=== PATIENT | female | born 1990 | race Asian ===

== ENCOUNTER 2019-06-15 13:53 | Inpatient (IN) | payer MEDICAID ==
[~2019-06-15] VITALS: Ht 154.9 cm; Wt 53.8 kg
[~2019-06-15 13:53] MED LIST: NOCURR
[2019-06-15] MEDS ORDERED: MIRT15 PO (16:32)
[2019-06-15] MEDS ORDERED: FLUO-191 PO (16:32)
[2019-06-15] MEDS ORDERED: ZOLPIDEM TARTRATE 10 MG TABLET PO PRN (16:45)
[2019-06-15] MEDS ORDERED: HALOPERIDOL 5 MG TABLET PO PRN (16:45)
[2019-06-15] MEDS ORDERED: INFLUENZA VIRUS VACCINE QVS 2019-20 (3YR+)/PF 60 MCG/0.5 ML SYRINGE IM ONE (17:30)
[2019-06-15 18:09] VITALS: BP 127/92
[2019-06-15] MEDS: LORazepam 2 MG TABLET PO PRN (20:21)
[2019-06-16 06:07] VITALS: BP 100/60
[2019-06-16 08:19] LABS: BASOPHILS % (AUTO) 0.7 % (0.0-2.0); EOSINOPHILS % (AUTO) 9.5 % (1.0-6.0); HEMATOCRIT 34.9 % (36-46); HEMOGLOBIN 12.1 g/dL (12.0-16.0); LYMPHOCYTES % (AUTO) 31.7 % (22.0-44.0); MEAN CORPUSCULAR HEMOGLOBIN 31.4 pg (26.0-34.0); MEAN CORPUSCULAR HGB CONC 34.7 G/dL (31.0-37.0); MEAN CORPUSCULAR VOLUME 91 fL (80-100); MONOCYTES # (AUTO) 0.5 K/uL (0.1-1.0); MONOCYTES % (AUTO) 7.6 % (2.0-9.0); NEUTROPHILS # (AUTO) 3.2 K/uL (1.8-7.7); NEUTROPHILS % (AUTO) 50.5 % (40.0-70.0); PLATELET COUNT (AUTO) 254 K/uL (150-450); RED BLOOD CELL COUNT(AUTO) 3.85 MIL/uL (4.00-5.20); RED CELL DISTRIBUTION WIDTH 12.6 % (11.5-14.5)
[2019-06-16 08:47] LABS: HEMOGLOBIN A1C 4.9 % (4.5-6.2)
[2019-06-16 08:55] LABS: ALANINE AMINOTRANSFERASE 20 U/L (12-78); ALKALINE PHOSPHATASE 25 U/L (46-116); ANION GAP 6 mmol/L (8-16); ASPARTATE AMINOTRANSFERASE 16 U/L (15-37); BILIRUBIN,TOTAL 0.7 mg/dL (0.1-1.0); CALCIUM, TOTAL 7.8 mg/dL (8.8-10.5); CARBON DIOXIDE 28 mmol/L (22-29); CHLORIDE 107 mmol/L (98-107); CHOL/HDL RATIO 3.1 (3.9-5.7); CHOLESTEROL 120 mg/dL (131-200); CREATININE 0.74 mg/dL (0.60-1.30); FREE T4 (FREE THYROXINE) 1.08 ng/dL (0.76-1.46); GLOMERULAR FILTR. RATE CALC > 60 mL/min (>60); GLUCOSE,RANDOM 81 mg/dL (70-110); HCG,QUANTITATIVE < 1 mIU/mL (0-6); HDL CHOLESTEROL 39 mg/dL (40-60); LDL CHOL (CALC.) 73 mg/dL (0-130); POTASSIUM 3.5 mmol/L (3.5-5.1); SODIUM SERUM 141 mmol/L (136-145); THYROID STIMULATING HORMONE 0.42 uIU/mL (0.36-3.74); TRIGLYCERIDES 42 mg/dL (15-150)
[2019-06-16 09:01] LABS: UREA NITROGEN, BLOOD 12 mg/dL (7-18)
[2019-06-16 09:29] VITALS: BP 101/53
[2019-06-16] MEDS ORDERED: DOCUSATE SODIUM 100 MG CAPSULE PO PRN (11:00)
[2019-06-16] MEDS ORDERED: CloNIDine HCL 0.1 MG TABLET PO PRN (11:00)
[2019-06-16] MEDS ORDERED: ALBUTEROL SULFATE HFA 90 MCG/PUFF 8 GM INHALER IH PRN (11:00)
[2019-06-16] MEDS ORDERED: ACETAMINOPHEN 325 MG TABLET PO PRN (11:00)
[2019-06-16] MEDS ORDERED: ONDANSETRON HCL 4 MG TABLET PO PRN (11:00)
[2019-06-16] MEDS ORDERED: PETROLATUM,WHITE 28 GM JELLY TP PRN (11:00)
[2019-06-16] MEDS ORDERED: IBUPROFEN 400 MG TABLET PO PRN (11:00)
[2019-06-16] MEDS ORDERED: MAG HYDROX/AL HYDROX/SIMETH ES 30 ML SUSPENSION UDCUP PO PRN (11:00)
[2019-06-16] MEDS ORDERED: MAGNESIUM HYDROXIDE SUSPENSION 30 ML UDCUP PO PRN (11:00)
[2019-06-16] MEDS ORDERED: GuaiFENesin/D-METHORPHAN [SUGAR-FREE] 200-20MG/10 ML SYRUP UDCUP PO PRN (11:00)
[2019-06-16] MEDS ORDERED: LOPERAMIDE HCL 2 MG CAPSULE PO PRN (11:00)
[2019-06-16] MEDS: ARIPiprazole 5 MG TABLET PO SCH (11:04)
[2019-06-16] MEDS: FLUoxetine HCL 20 MG CAPSULE PO SCH (11:04)
[2019-06-16 16:04] VITALS: BP 116/71
[2019-06-16] MEDS: LORazepam 2 MG TABLET PO PRN (20:19)
[2019-06-17 05:01] VITALS: BP 110/65
[2019-06-17] MEDS: FLUoxetine HCL 20 MG CAPSULE PO SCH (08:08)
[2019-06-17] MEDS: ARIPiprazole 5 MG TABLET PO SCH (08:08)
[2019-06-17 08:18] VITALS: BP 101/57
[2019-06-17] MEDS ORDERED: FLUoxetine HCL 20 MG CAPSULE PO SCH (09:00)
[2019-06-17] MEDS: NICOTINE 14 MG/24 HOUR PATCH TD PRN (11:54)
[2019-06-17 16:03] VITALS: BP 108/61
[2019-06-17] MEDS: LORazepam 2 MG TABLET PO PRN (20:18)
[2019-06-18 05:17] VITALS: BP 105/61
[2019-06-18] MEDS: ARIPiprazole 5 MG TABLET PO SCH (08:03)
[2019-06-18] MEDS: FLUoxetine HCL 20 MG CAPSULE PO SCH (08:03)
[2019-06-18 08:09] VITALS: BP 115/67
[2019-06-18 08:30] LABS: APPEARANCE,URINE CLEAR (CLEAR); BILIRUBIN,URINE NEGATIVE (NEGATIVE); GLUCOSE, URINE (UA) NEGATIVE (NEGATIVE); KETONES,URINE NEGATIVE (NEGATIVE); LEUKOCYTE ESTERASE ,URINE NEGATIVE (NEGATIVE); NITRATE,URINE NEGATIVE (NEGATIVE); OCCULT BLOOD,URINE NEGATIVE (NEGATIVE); PROTEIN,URINE NEGATIVE (NEGATIVE); UROBILINOGEN,URINE 0.2 mg/dL (<=1.0)
[2019-06-18 08:37] LABS: AMPHET/METH SCREEN,URINE NEGATIVE (NEGATIVE); BARBITURATE SCREEN, URINE NEGATIVE (NEGATIVE); BENZODIAZEPINES SCREEN,URINE NEGATIVE (NEGATIVE); CANNABINOID SCREEN,URINE NEGATIVE (NEGATIVE); COCAINE SCREEN,URINE NEGATIVE (NEGATIVE); METHADONE SCREEN, URINE NEGATIVE (NEGATIVE); OPIATE SCREEN,URINE NEGATIVE (NEGATIVE); PHENCYCLIDINE SCREEN,URINE NEGATIVE (NEGATIVE)
[2019-06-18] MEDS: NICOTINE 14 MG/24 HOUR PATCH TD PRN (08:51)
[2019-06-18] MEDS: LORazepam 2 MG TABLET PO PRN ×2 (13:07→19:31)
[2019-06-18 13:32] VITALS: BP 120/74
[2019-06-18 16:00] VITALS: BP 129/83
[2019-06-19 00:53] VITALS: BP 121/86
[2019-06-19] MEDS: LORazepam 2 MG TABLET PO PRN (07:55)
[2019-06-19 08:18] VITALS: BP 108/69
[2019-06-19] MEDS: FLUoxetine HCL 20 MG CAPSULE PO SCH (08:19)
[2019-06-19] MEDS: ARIPiprazole 5 MG TABLET PO SCH ×2 (08:19→09:00)
[2019-06-19] MEDS: NICOTINE 14 MG/24 HOUR PATCH TD PRN (14:36)
[2019-06-19 16:09] VITALS: BP 134/80
[2019-06-20 06:52] VITALS: BP 120/72
[2019-06-20 08:28] VITALS: BP 113/56
[2019-06-20] MEDS ORDERED: FLUoxetine HCL 20 MG CAPSULE PO SCH (09:00)
== END 2019-06-20 13:30 | disposition home or self-care (01) | DRG 751 ==
LOC: B3A 17:14
PROVIDERS: ADMIT Psychiatry & Neurology Psychiatry; ATTEND Psychiatry & Neurology Psychiatry
DX: F33.2 Major depressive disorder, recurrent severe without psychotic features (principal); I95.9 Hypotension, unspecified; R45.851 Suicidal ideations; Z91.19 Patient's noncompliance with other medical treatment and regimen; F10.10 Alcohol abuse, uncomplicated; F60.3 Borderline personality disorder; R45.87 Impulsiveness; F12.90 Cannabis use, unspecified, uncomplicated; Z71.51 Drug abuse counseling and surveillance of drug abuser; Z81.8 Family history of other mental and behavioral disorders; Z79.899 Other long term (current) drug therapy; Z91.5 Personal history of self-harm; Z23 Encounter for immunization; F19.10 Other psychoactive substance abuse, uncomplicated
CPT/HCPCS: 80307; 83036; 84439; 84443; 87081; 90686